=== PATIENT | male | born 1980 | race Caucasian/White ===

== ENCOUNTER 2018-12-16 10:35 | Emergency (ER) | payer MEDICAID ==
[~2018-12-16] VITALS: Ht 177.8 cm; Wt 107.7 kg
[2018-12-16 10:36] VITALS: Ht 177.8 cm; Wt 107.7 kg
[2018-12-16 11:21] LABS: ALBUMIN 3.9 g/dL (3.4-5.0); ALKALINE PHOSPHATASE 66 U/L (46-116); ALT (SGPT) 39 U/L (10-68); BILIRUBIN - TOTAL 0.83 mg/dL (0.2-1.3); CALC OSMOLALITY 277 mosm/kg (275-300); CALCIUM 9.3 mg/dL (8.5-10.1); CARBON DIOXIDE 26.6 mmol/L (21.0-32.0); CHLORIDE - SERUM 99 mmol/L (98-107); CREATININE - SERUM 1.3 mg/dL (0.6-1.3); GLUCOSE 137 mg/dL (74-106); POTASSIUM - SERUM 4.3 mmol/L (3.5-5.1); PROTEIN - SERUM 9.1 g/dL (6.4-8.2); SODIUM 137 mmol/L (136-145); UREA NITROGEN 17 mg/dL (7-18); eGFR NON AFRICAN AMERICAN 66 mL/min (90-120)
[2018-12-16 11:22] LABS: BASOPHILS 0.2 % (0-2); EOSINOPHILS 0.5 % (0-7); HEMOGLOBIN 16.2 g/dL (13.5-17.5); IMMATURE GRANULOCYTES 0.3 % (0-5); LYMPHOCYTES 23.7 % (15-50); MCHC 34.5 g/dL (31.0-37.0); MCV 84.1 fL (80.0-100.0); MEAN PLATELET VOLUME 10.4 fL (7.4-10.4); MONOCYTES 10.2 % (2-11); NEUTROPHILS 65.1 % (40-80); PLATELET COUNT 230 10x3/uL (130-400); RBC 5.59 10x6/uL (4.20-6.10); RDW 13.1 % (11.5-14.5); WBC 10.3 10x3/uL (4.8-10.8)
[2018-12-16 11:23] LABS: AMYLASE - SERUM 44 U/L (25-115); LIPASE 96 U/L (73-393)
[2018-12-16 11:27] LABS: APPEARANCE HAZY (CLEAR); BILIRUBIN NEGATIVE (NEGATIVE); COLOR YELLOW (YELLOW); EPITHELIAL CELLS 0-5 /hpf (0-5); GLUCOSE NEGATIVE (NEGATIVE); KETONE NEGATIVE (NEGATIVE); NITRITE NEGATIVE (NEGATIVE); PROTEIN 2+ mg/dL (NEGATIVE); RED CELLS - URINE OCC /hpf (0-5); SPECIFIC GRAVITY 1.025 (1.005-1.020); WHITE CELLS - URINE RARE /hpf (0-5)
[2018-12-16 11:28] LABS: AMORPHOUS SEDIMENT <1+ /lpf (NONE SEEN); BACTERIA MODERATE /hpf (NONE SEEN); GRANULAR CAST 0-5 /lpf (NONE SEEN); HYALINE CAST RARE /lpf (NONE SEEN); MUCUS <1+ /lpf (NONE SEEN)
[2018-12-16 11:29] LABS: TROPONIN-I < 0.017 ng/mL (0.000-0.060)
[2018-12-16] MEDS ORDERED: TYLENOL W/CODEI1 TAB PO (14:01)
[2018-12-16] MEDS ORDERED: LEVAQUIN750 MG PO (14:01)
[2018-12-16] MEDS ORDERED: ZOFRAN ODT4 MG/UDTAB PO (14:01)
[2018-12-16 14:30] VITALS: BP 124/83
== END 2018-12-16 15:44 | disposition home or self-care (01) ==
LOC: D.ER 10:35
PROVIDERS: Family Medicine
DX: J18.1 Lobar pneumonia, unspecified organism (principal)

== ENCOUNTER 2018-12-18 10:20 | Emergency (ER) | payer MEDICAID ==
[~2018-12-18] VITALS: Ht 177.8 cm; Wt 107.7 kg
[~2018-12-18 10:20] MED LIST: LEVAQUIN750 MG PO; TYLENOL W/CODEI1 TAB PO; ZOFRAN ODT4 MG/UDTAB PO
[2018-12-18 10:33] VITALS: BP 136/83; Ht 177.8 cm; Wt 107.7 kg
[2018-12-18] MEDS ORDERED: ZITHROMAX500 MG PO (11:19)
== END 2018-12-18 11:48 | disposition home or self-care (01) ==
LOC: D.ER 10:20
DX: L27.0 Generalized skin eruption due to drugs and medicaments taken internally (principal); J18.9 Pneumonia, unspecified organism

== ENCOUNTER 2019-02-13 15:58 | Emergency (ER) | payer SELFPAY ==
[~2019-02-13] VITALS: Ht 177.8 cm; Wt 100.0 kg
[~2019-02-13 15:58] MED LIST changes: +ZITHROMAX500 MG PO
[2019-02-13 16:03] VITALS: Ht 177.8 cm; Wt 100.0 kg
[2019-02-13] MEDS ORDERED: IBUPROFEN800 MG PO (17:38)
[2019-02-13 17:50] VITALS: BP 146/84
== END 2019-02-13 17:56 | disposition home or self-care (01) ==
LOC: D.ER 15:58
DX: S61.212A Laceration without foreign body of right middle finger without damage to nail, initial encounter (principal); W26.0XXA Contact with knife, initial encounter; Y93.9 Activity, unspecified; Y92.9 Unspecified place or not applicable